=== PATIENT | male | born 1990 | race Hispanic/Latino ===

== ENCOUNTER 2021-04-27 16:10 | Emergency (ER) | payer BC, SELFPAY ==
--- NOTE | 2021-04-27 19:37 | ER ---
Nurse's Notes [facility] Name: Kvng Pressley III Age: 30 yrs Sex: Male : 1990 Arrival Date: 04/27/2021 Time: 16:19 Bed Treatment Private MD: Duong Hoyos R Diagnosis: Presentation: 04/27 16:48 Chief complaint: Patient states: L groin pain and swollen area for 1 day. Tylenol did ll1 help, but his job wants him checked. No dysuria or fever. Coronavirus screen: Vaccine status: Patient reports being unvaccinated. Client denies travel out of the [place] in the last 14 days. At this time, the client does not indicate any symptoms associated with coronavirus-19. Ebola Screen: Patient denies travel to an Ebola-affected area in the 21 days before illness onset. Initial Sepsis Screen: Does the patient meet any 2 criteria? No. Patient's initial sepsis screen is negative. Does the patient have a suspected source of infection? No. Patient's initial sepsis screen is negative. Risk Assessment: Do you want to hurt yourself or someone else? Patient reports no desire to harm self or others. Onset of symptoms was April 27, 2021. 16:48 Method Of Arrival: Ambulatory ll1 16:48 Acuity: MIKE 3 ll1 Triage Assessment: 16:51 General: Appears in no apparent distress. Behavior is calm, cooperative, appropriate ll1 for age. Pain: Complains of pain in groin. : Reports lump L groin. Historical: - Allergies: 16:50 No Known Allergies; ll1 - PMHx: 16:50 Diverticulitis; ll1 - PSHx: 16:50 None; ll1 - Immunization history:: Client reports having NOT received the Covid vaccine. Flu vaccine status is unknown. - Social history:: Smoking status: Reported history of juuling and/or vaping. Patient denies any tobacco usage or history of. Vital Signs: 16:48 BP 135 / 78; Pulse 72; Resp 16; Temp 98.0; Pulse Ox 96% ; Weight 95.25 kg; Height 5 ft. ll1 9 in. (175.26 cm); Pain 8/10; 16:48 Body Mass Index 31.01 (95.25 kg, 175.26 cm) ll1 ED Course: 16:19 Patient arrived in ED. rg4 16:20 Duong Hoyos MD is Private Physician. rg4 16:50 Triage completed. ll1 16:50 Arm band placed on. 1 19:27 Lyle Mohan MD is Attending Physician. 7 Administered Medications: No medications were administered Outcome: 19:36 Patient left the ED. vc1 Signatures: Mena Rogesr rg4 Callie Veliz RN RN 1 Lyle Mohan MD MD [facility] Amanda Zuniga RN RN 1
[2021-04-27 19:57] VITALS: BP 135/78; TEMP 98; O2SAT 96
== END 2021-04-27 19:36 | disposition left against medical advice (07) ==
LOC: ER 16:10
DX: Z53.21 Procedure and treatment not carried out due to patient leaving prior to being seen by health care provider (principal)
CPT/HCPCS: 99281

== ENCOUNTER 2021-10-31 08:37 | Emergency (ER) | payer SELFPAY ==
--- OUTSIDE RECORDS SUMMARY | 2021-10-31 08:39 | XMS REPORT | Continuity of Care Document ---
:1990 Author Organization [facility] t Address [address] [place] [address] Care Team Providers Name Role Phone BRIANNA ROBERTO Primary Care Physician Unavailable Zahida Bull DO Attending Clinician ZAHIDA BULL Attending Clinician Unavailable Only, Ang Db Test Attending Clinician Unavailable Christa Dykes MD Attending Clinician Sree ADAM Attending Clinician Unavailable Yvette Harrison Attending Clinician Sree Duran Attending Clinician Sherry LAU, Milena Owen Attending Clinician Unavailable Only, Gal Adult Uc Test Attending Clinician Unavailable Aneesh Faustin MD Attending Clinician Payers Payer Name Policy Type Policy Number Effective Date Expiration Date S ource CONTINUUM [id number] 2015 Universi ty of GENERIC 00:00:00 [facility] [id number] 016-PresentAge ncy Problems Condition Condition Condition Status Onset Resolution Last Treating Co mments Source Name Details Category Date Date Treatment Clinician Date No known No known Disease Unive rs active active ity of problems problems [facility] Allergies, Adverse Reactions, Alerts Allergy Allergy Status Severity Reaction(s) Onset Inactive Treating Comm ents Source Name Type Date Date Clinician NO KNOWN Drug Active Univers ALLERGIE Class ity of S [place] [facility] [place] Social History Social Habit Start Date Stop Date Quantity Comments Source Exposure to Not sure [facility] SARS-CoV-2 (event) Medica l Branch Sex Assigned At [birth year] [facility] 00:00:00 00:00:00 Medical Branch Smoking Status Start Date Stop Date Source Unknown if ever smoked [facility] Medications Ordered Filled Start Stop Current Ordering Indication Dosage Frequency Signature Comments Components Source Medication Medication Date Date Medication? Clinician (SIG) Name Name naproxen 2020-0 Yes [id number] 550mg Take 1 Univers sodium 8-20 9106 tablet by ity of (ANAPROX 00:00: mouth 2 [place] DS) 550 mg 00 (two) Medical tablet times Branch daily with meals. methylPREDN 2020-0 Yes [id number] Take by Univers ISolone 8-20 9106 mouth ity of (MEDROL, 00:00: SEE-INSTRU Javier as MANSOOR,) 4 mg 00 CTIONS. Medica l tablets follow Branch package directions naproxen 2020-0 Yes [id number] 550mg Take 1 Univers sodium 8-20 9106 tablet by ity of (ANAPROX 00:00: mouth 2 [place] DS) 550 mg 00 (two) Medical tablet times Branch daily with meals. methylPREDN 2020-0 Yes [id number] Take by Univers ISolone 8-20 9106 mouth ity of (MEDROL, 00:00: SEE-INSTRU Javier as MANSOOR,) 4 mg 00 CTIONS. Medica l tablets follow Branch package directions naproxen 2020-0 Yes [id number] 550mg Take 1 Univers sodium 8-20 9106 tablet by ity of (ANAPROX 00:00: mouth 2 [place] DS) 550 mg 00 (two) Medical tablet times Branch daily with meals. methylPREDN 2020-0 Yes [id number] Take by Univers ISolone 8-20 9106 mouth ity of (MEDROL, 00:00: SEE-INSTRU Javier as MANSOOR,) 4 mg 00 CTIONS. Medica l tablets follow Branch package directions naproxen 2020-0 Yes [id number] 550mg Take 1 Univers sodium 8-20 9106 tablet by ity of (ANAPROX 00:00: mouth 2 [place] DS) 550 mg 00 (two) Medical tablet times Branch daily with meals. methylPREDN 0 Yes [id number] Take by Univers ISolone 8 9106 mouth ity of (MEDROL, 00:00: SEE-INSTRU Javier as MANSOOR,) 4 mg 00 CTIONS. Medica l tablets follow Branch package directions naproxen 0 Yes [id number] 550mg Take 1 Univers sodium 8 9106 tablet by ity of (ANAPROX 00:00: mouth 2 [place] DS) 550 mg 00 (two) Medical tablet times Branch daily with meals. methylPREDN 0 Yes [id number] Take by Univers ISolone 8 9106 mouth ity of (MEDROL, 00:00: SEE-INSTRU Javier as MANSOOR,) 4 mg 00 CTIONS. Medica l tablets follow Branch package directions azithromyci Yes [id number] 250mg Take 1 Univers n 5-13 tablet by ity of (ZITHROMAX 00:00: mouth [place] Z-MANSOOR) 250 00 SEE-INSTRU Med ical mg tablet CTIONS. Branch Take 500 mg day 1, then 250 mg days 2 to 5. benzonatate Yes [id number] 100mg Take 1 Univers 100 mg 5-13 capsule by ity of capsule 00:00: mouth 3 [place] 00 (three) Medical times Branch daily as needed for Cough. ibuprofen Yes [id number] 600mg Take 1 U nivers 600 mg 5-13 tablet by ity of tablet 00:00: mouth [place] 00 every 6 Medical (six) Branch hours as needed for Pain (scale 4-6). azithromyci Yes [id number] 250mg Take 1 Univers n 5-13 tablet by ity of (ZITHROMAX 00:00: mouth [place] Z-MANSOOR) 250 00 SEE-INSTRU Med ical mg tablet CTIONS. Branch Take 500 mg day 1, then 250 mg days 2 to 5. benzonatate Yes [id number] 100mg Take 1 Univers 100 mg 5-13 capsule by ity of capsule 00:00: mouth 3 [place] 00 (three) Medical times Branch daily as needed for Cough. ibuprofen Yes [id number] 600mg Take 1 U nivers 600 mg 5-13 tablet by ity of tablet 00:00: mouth [place] 00 every 6 Medical (six) Branch hours as needed for Pain (scale 4-6). azithromyci 2020-0 Yes [id number] 250mg Take 1 Univers n 5-13 tablet by ity of (ZITHROMAX 00:00: mouth [place] Z-MANSOOR) 250 00 SEE-INSTRU Med ical mg tablet CTIONS. Branch Take 500 mg day 1, then 250 mg days 2 to 5. benzonatate 2020-0 Yes [id number] 100mg Take 1 Univers 100 mg 5-13 capsule by ity of capsule 00:00: mouth 3 [place] 00 (three) Medical times Branch daily as needed for Cough. ibuprofen 2020-0 Yes [id number] 600mg Take 1 U nivers 600 mg 5-13 tablet by ity of tablet 00:00: mouth [place] 00 every 6 Medical (six) Branch hours as needed for Pain (scale 4-6). azithromyci 2020-0 Yes [id number] 250mg Take 1 Univers n 5-13 tablet by ity of (ZITHROMAX 00:00: mouth [place] Z-MANSOOR) 250 00 SEE-INSTRU Med ical mg tablet CTIONS. Branch Take 500 mg day 1, then 250 mg days 2 to 5. benzonatate 2020-0 Yes [id number] 100mg Take 1 Univers 100 mg 5-13 capsule by ity of capsule 00:00: mouth 3 (three) Medical times Branch daily as needed for Cough. ibuprofen 2020-0 Yes [id number] 600mg Take 1 U nivers 600 mg 5-13 tablet by ity of tablet 00:00: mouth [place] 00 every 6 Medical (six) Branch hours as needed for Pain (scale 4-6). azithromyci 2020-0 Yes [id number] 250mg Take 1 Univers n 5-13 tablet by ity of (ZITHROMAX 00:00: mouth [place] Z-MANSOOR) 250 00 SEE-INSTRU Med ical mg tablet CTIONS. Branch Take 500 mg day 1, then 250 mg days 2 to 5. benzonatate 2020-0 Yes [id number] 100mg Take 1 Univers 100 mg 5-13 capsule by ity of capsule 00:00: mouth 3 [place] 00 (three) Medical times Branch daily as needed for Cough. ibuprofen 2020-0 Yes [id number] 600mg Take 1 U nivers 600 mg 5-13 tablet by ity of tablet 00:00: mouth [place] 00 every 6 Medical (six) Branch hours as needed for Pain (scale 4-6). Vital Signs Vital Name Observation Time Observation Value Comments Source Systolic blood 2021-04-28 01:11:00 140 mm[Hg] Univer sity of pressure [place] [facility] Diastolic blood 2021-04-28 01:11:00 88 mm[Hg] Unive rsity of pressure [facility] Branch Heart rate 2021-04-28 01:11:00 78 /min Universi ty of [facility] Body temperature 2021-04-28 01:11:00 36.56 [facility] Branch Respiratory rate 2021-04-28 01:11:00 20 /min [facility] Body weight 2021-04-28 01:11:00 98.884 kg Universi ty of [facility] Branch BMI 2021-04-28 01:11:00 32.19 kg/m2 Universi ty [facility] Branch Systolic blood 2021-02-12 22:48:00 141 mm[Hg] Univer sity of [facility] Branch Diastolic blood 2021-02-12 22:48:00 90 mm[Hg] Unive rsity of pressure [place] [facility] Heart rate 2021-02-12 22:48:00 92 /min Universi ty of [facility] Branch Body temperature 2021-02-12 22:48:00 37 [facility] Branch Respiratory rate 2021-02-12 22:48:00 18 /min [facility] Body height 2021-02-12 22:48:00 175.3 cm Universi ty [facility] Branch Body weight 2021-02-12 22:48:00 102.059 kg Universi ty of [place] [facility] BMI 2021-02-12 22:48:00 33.23 kg/m2 Universi [facility] Oxygen saturation in 2021-02-12 22:48:00 100 /min [facility] Arterial blood by [facility] Pulse oximetry Branch Procedures Procedure Date / Time Performed Performing Clinician [facility] e ASSIGNMENT OF BENEFITS 2021-04-28 01:22:52 Doctor Unassigned, No [facility] NOTICE OF PRIVACY 2021-04-28 01:04:24 Doctor Unassigned, No [facility] CONSENT/REFUSAL FOR 2021-04-28 01:04:06 Doctor Unassigned, No [facility] AND Name [facility] Branch TREATMENT Encounters Start End Encounter Admission Attending Care Care Encounter Source Date/Time Date/Time Type Type Clinicians Facility Department ID 2021-04-27 2021-04-27 Emergency Ml [facility] [id number] Univers 19:14:00 20:00:00 Zahida NERI [id number] ity of [place] [id number] [id number] [place] [id number] Branch 2021-04-27 2021-04-27 Emergency X ML [facility] ERT [id number] Univers 19:14:00 20:00:00 ZAHIDA itdillan [facility] 2021-03-19 2021-03-19 Laboratory Only, Ang Db Test [facility] 1.2.8 [id number] [id number] Univers 11:45:00 12:00:00 Only [facility] [id number] ity of [place] [id number] Javier as ESEQUIEL?BLEA [id number] [address] MEDICAL OFFICE BUILDING 2021-02-12 2021-02-12 Emergency X Sree ADAM [facility] ERT [id number] Univers 16:49:00 18:18:00 ity of [facility] 2021-02-12 2021-02-12 Emergency Yvette Sharp [facility] 1.2. [id number] Univers 16:49:00 18:18:00 Sree Adam [id number] ity of [place] [id number] [facility] [id number] [facility] 084 Branch 2020-11-14 2020-11-14 Letter KARYNA Powell [id number] Univers 00:00:00 00:00:00 (Out) Milena WILL [id number] it y of [facility] [id number] Javier as [id number] [facility] 019 Branch 2020-11-13 2020-11-13 Laboratory Only, Gal Adult Uc Test [place] [id number] Univers 17:30:51 17:45:51 Only RaminAneesh [id number] ity of Pediatric [id number] [facility] [id number] [address] 2020-11-03 2020-11-03 Emergency X [facility] ERT [id number] Univers 08:25:00 08:25:00 ity [facility] 2020-07-27 2020-07-27 Emergency X [facility] ERT [id number] Univers 07:26:00 07:26:00 ity [facility] 2019-12-28 2019-12-28 Emergency X ML [facility] ERT [id number] Univers 20:56:00 20:56:00 [facility] 2019-09-27 2019-09-27 Emergency X [facility] ERT [id number] Univers 15:17:00 15:17:[address] [facility] Results This patient has no known results.
--- NOTE | 2021-10-31 09:07 | ER ---
Nurse's Notes [facility] Name: Kvng Pressley III Age: 31 yrs Sex: Male : 1990 Arrival Date: 10/31/2021 Time: 08:40 Bed Waiting Private MD: Diagnosis: Unspecified contact dermatitis, unspecified cause;Allergic urticaria Presentation: 10/31 08:59 Chief complaint: Patient states: itchy and painful rash on inside of left arm, right iw lower abd , left upper thigh since yesterday. Coronavirus screen: At this time, the client does not indicate any symptoms associated with coronavirus-19. Ebola Screen: Patient denies exposure to infectious person. Patient denies travel to an Ebola-affected area in the 21 days before illness onset. No symptoms or risks identified at this time. Initial Sepsis Screen: Does the patient meet any 2 criteria? No. Patient's initial sepsis screen is negative. Does the patient have a suspected source of infection? No. Patient's initial sepsis screen is negative. Risk Assessment: Do you want to hurt yourself or someone else? Patient reports no desire to harm self or others. Onset of symptoms was October 30, 2021. 08:59 Method Of Arrival: Ambulatory iw 08:59 Acuity: MIKE 4 iw Historical: - Allergies: 09:00 blueberries; iw - Home Meds: 09:00 None [Active]; iw - PMHx: 09:00 Diverticulitis; iw - PSHx: 09:00 None; iw Screenin:30 Abuse screen: Denies threats or abuse. Denies injuries from another. Nutritional iw screening: No deficits noted. Tuberculosis screening: No symptoms or risk factors identified. Fall Risk None identified. Assessment: 08:45 General: Appears in no apparent distress. Behavior is calm, cooperative. Pain: Denies iw pain. Neuro: Level of Consciousness is awake, alert, obeys commands, Oriented to person, place, time, situation, Moves all extremities. Derm: Rash noted that is red, urticaria, on right lower quadrant and left lower quadrant. Musculoskeletal: Range of motion: intact in all extremities. Vital Signs: 09:01 BP 126 / 86; Pulse 82; Resp 16; Pulse Ox 100% on R/A; iw ED Course: 08:40 Patient arrived in ED. rg4 08:42 Jaxson Castro is [facility]. jl9 08:42 Navarro Gonzalez DO is Attending Physician. jl9 09:00 Triage completed. iw 09:01 Arm band placed on. iw 09:18 Elissa Loaiza, RN is Primary Nurse. iw Administered Medications: :28 Drug: Benadryl (diphenhydrAMINE) 50 mg Route: IM; Site: right deltoid; iw 09:45 Follow up: Response: No adverse reaction iw 09:28 Drug: Famotidine 40 mg Route: PO; iw 09:45 Follow up: Response: No adverse reaction iw 11:55 Not Given (Physician Discretion): MethylPrednisoLONE 125 mg IVP once iw Outcome: :06 Discharge ordered by . jl9 09:31 Patient left the ED. iw Signatures: Elissa Loaiza RN RN iw Mena Rogers rg4 Jaxson Castro jl9 Corrections: (The following items were deleted from the chart) 09: 09:00 Allergies: No Known Allergies; iw iw
--- NOTE | 2021-10-31 09:07 | EDPHYS ---
Physician Documentation [facility] Name: Kvng Pressley III Age: 31 yrs Sex: Male : 1990 Arrival Date: 10/31/2021 Time: 08:40 Bed Waiting Private MD: ED Physician Navarro Gonzalez HPI: 10/31 08:51 This 31 yrs old Male presents to ER via Ambulatory with complaints of Rash. jl9 08:51 The patient's rash thought to be caused by an unknown cause. The rash is located on the jl9 body diffusely. The rash can be described as erythematous, raised, urticarial. Onset: The symptoms/episode began/occurred yesterday. Associated signs and symptoms: Pertinent positives: itching, Pertinent negatives:. Treatment given at home: Benadryl. Historical: - Allergies: 09:00 blueberries; iw - Home Meds: 09:00 None [Active]; iw - PMHx: 09:00 Diverticulitis; iw - PSHx: 09:00 None; iw ROS: 08:55 Constitutional: Negative for fever, chills, and weight loss, Eyes: Negative for injury, jl9 pain, redness, and discharge, ENT: Negative for injury, pain, and discharge, Neck: Negative for injury, pain, and swelling, Cardiovascular: Negative for chest pain, palpitations, and edema, Respiratory: Negative for shortness of breath, cough, wheezing, and pleuritic chest pain, Abdomen/GI: Negative for abdominal pain, nausea, vomiting, diarrhea, and constipation, Back: Negative for injury and pain, : Negative for injury, bleeding, discharge, and swelling, MS/Extremity: Negative for injury and deformity. 08:55 Neuro: Negative for headache, weakness, numbness, tingling, and seizure, Psych: Negative for depression, anxiety, suicide ideation, homicidal ideation, and hallucinations, Allergy/Immunology: Negative for hives, rash, and allergies, Endocrine: Negative for neck swelling, polydipsia, polyuria, polyphagia, and marked weight changes, Hematologic/Lymphatic: Negative for swollen nodes, abnormal bleeding, and unusual bruising. 08:55 Skin: Positive for rash, diffusely. Exam: 08:56 Constitutional: This is a well developed, well nourished patient who is awake, alert, jl9 and in no acute distress. Head/Face: Normocephalic, atraumatic. Eyes: Pupils equal round and reactive to light, extra-ocular motions intact. Lids and lashes normal. Conjunctiva and sclera are non-icteric and not injected. Cornea within normal limits. Periorbital areas with no swelling, redness, or edema. ENT: Mucous membranes moist. Neck: Trachea midline, no thyromegaly or masses palpated, and no cervical lymphadenopathy. Supple, full range of motion without nuchal rigidity, or vertebral point tenderness. No Meningismus. Chest/axilla: Normal chest wall appearance and motion. Nontender with no deformity. No lesions are appreciated. Cardiovascular: Regular rate and rhythm with a normal S1 and S2. No gallops, murmurs, or rubs. Normal PMI, no JVD. No pulse deficits. Respiratory: Lungs have equal breath sounds bilaterally, clear to auscultation and percussion. No rales, rhonchi or wheezes noted. No increased work of breathing, no retractions or nasal flaring. Abdomen/GI: Soft, non-tender, with normal bowel sounds. No distension or tympany. No guarding or rebound. No evidence of tenderness throughout. Back: No spinal tenderness. No costovertebral tenderness. Full range of motion. 08:56 MS/ Extremity: Pulses equal, no cyanosis. Neurovascular intact. Full, normal range of motion. Neuro: Awake and alert, GCS 15, oriented to person, place, time, and situation. Cranial nerves II-XII grossly intact. Motor strength 5/5 in all extremities. Sensory grossly intact. Cerebellar exam normal. Normal gait. Psych: Awake, alert, with orientation to person, place and time. Behavior, mood, and affect are within normal limits. 08:56 Skin: rash can be described as urticarial. Vital Signs: 09:01 BP 126 / 86; Pulse 82; Resp 16; Pulse Ox 100% on R/A; iw MDM: 08:51 Patient medically screened. jl9 08:57 Data reviewed: vital signs, nurses notes. jl9 09:05 Counseling: I had a detailed discussion with the patient and/or guardian regarding: the jl9 historical points, exam findings, and any diagnostic results supporting the discharge/admit diagnosis, the need for outpatient follow up, to return to the emergency department if symptoms worsen or persist or if there are any questions or concerns that arise at home. Administered Medications: 09:28 Drug: Benadryl (diphenhydrAMINE) 50 mg Route: IM; Site: right deltoid; iw 09:45 Follow up: Response: No adverse reaction iw 09:28 Drug: Famotidine 40 mg Route: PO; iw 09:45 Follow up: Response: No adverse reaction iw 11:55 Not Given (Physician Discretion): MethylPrednisoLONE 125 mg IVP once iw Disposition: 19:27 Co-signature as Attending Physician, Navarro Gonzalez DO I was immediately available on-site ms3 in the Emergency Department for consultation in the care of the patient.. Disposition Summary: 10/31/21 09:06 Discharge Ordered Location: Home jl9 Condition: Stable jl9 Diagnosis - Unspecified contact dermatitis, unspecified cause jl9 - Allergic urticaria jl9 Followup: jl9 - With: Private Physician - When: 1 - 2 days - Reason: Recheck today's complaints, Continuance of care, Re-evaluation by your physician Discharge Instructions: - Discharge Summary Sheet jl9 - Contact Dermatitis jl9 - Rash, Adult, [id number] jl9 Forms: - Work release form iw - Medication Reconciliation Form jl9 - Thank You Letter jl9 - Antibiotic Education jl9 - Prescription Opioid Use jl9 Prescriptions: - Triamcinolone Acetonide 0.5 % Topical Cream - apply 1 application by TOPICAL route 2 times per day As needed; 1 tube; jl9 Refills: 0, Product Selection Permitted - Prednisone 20 mg Oral Tablet - take 2 tablets by ORAL route once daily for 5 days; 10 tablet; Refills: 0, jl9 Product Selection Permitted Signatures: Elissa Loaiza, RN RN iw Navarro Gonzalez DO DO ms3 Jaxson Castro jl9 Corrections: (The following items were deleted from the chart) 09:01 09:00 Allergies: No Known Allergies; iw iw
[2021-10-31] MEDS ORDERED: METHYLPREDNISOLONE 125 MG INJ ONE (09:28)
[2021-10-31] MEDS ORDERED: FAMOTIDINE 20 MG TAB ONE (09:29)
[2021-10-31] MEDS ORDERED: DIPHENHYDRAMINE 50 MG/ML VIAL ONE (09:29)
[2021-10-31 09:40] VITALS: BP 126/86; O2SAT 100
== END 2021-10-31 09:31 | disposition home or self-care (01) ==
LOC: ER 08:37
DX: L25.9 Unspecified contact dermatitis, unspecified cause (principal); L50.0 Allergic urticaria; Z91.018 Allergy to other foods
CPT/HCPCS: J1200; J2930

== ENCOUNTER 2021-11-26 09:07 | Emergency (ER) | payer SELFPAY ==
--- OUTSIDE RECORDS SUMMARY | 2021-11-26 09:10 | XMS REPORT | Continuity of Care Document ---
:1990 Author Organization [facility] t Address [address] [place] [address] Care Team Providers Name Role Phone BRIANNA [...] Effective Date Expiration Date S ource CONTINUUM [id number] 2015 Universi ty of GENERIC 00:00:00 [facility] [id number] 016-PresentAge ncy Problems Condition Condition Condition Status Onset Resolution Last Treating Co mments Source Name Details Category Date Date Treatment Clinician Date No known No known Disease Unive rs active active ity of problems problems [facility] Allergies, Adverse Reactions, Alerts Allergy Allergy Status Severity Reaction(s) Onset Inactive Treating Comm ents Source Name Type Date Date Clinician NO KNOWN Drug Active Univers ALLERGIE Class ity of [facility] Social History Social Habit Start Date Stop Date Quantity Comments Source Exposure to Not sure [facility] SARS-CoV-2 (event) Medica l Branch Sex Ass[birth year] [facility] 00:00:00 00:00:00 Medical Branch Smoking Status Start Date Stop Date Source Unknown if ever smoked [facility] Medications Ordered Filled Start Stop Current Ordering Indication Dosage Frequency Signature Comments Components Source Medication Medication Date Date Medication? Clinician (SIG) Name Name naproxen 2020-0 Yes [id number] 550mg Take 1 Univers sodium 8-20 9106 tablet by ity of (ANAPROX 00:00: mouth 2 [place] DS) 550 mg 00 (two) Medical tablet times Branch daily with meals. methylPREDN 2020-0 Yes [id number] Take by Univers ISolone 8-20 9106 mouth ity of (MEDROL, 00:00: SEE-INSTRU Javier as MANSOOR,) 4 mg 00 CTIONS. Medica l tablets follow Branch package directions naproxen 2020-0 Yes [id number] 550mg Take 1 Univers sodium 8-20 9106 tablet by ity of (ANAPROX 00:00: mouth 2 [place] DS) 550 mg 00 (two) Medical tablet times Branch daily with meals. methylPREDN 2020-0 Yes [id number] Take by Univers ISolone 8-20 9106 mouth ity of (MEDROL, 00:00: SEE-INSTRU Javier as MANSOOR,) 4 mg 00 CTIONS. Medica l tablets follow Branch package directions naproxen 2020-0 Yes [id number] 550mg Take 1 Univers sodium 8-20 9106 tablet by ity of (ANAPROX 00:00: mouth 2 [place] DS) 550 mg 00 (two) Medical tablet times Branch daily with meals. methylPREDN 2020-0 Yes [id number] Take by Univers ISolone 8-20 9106 mouth ity of (MEDROL, 00:00: SEE-INSTRU Javier as MANSOOR,) 4 mg 00 CTIONS. Medica l tablets follow Branch package directions naproxen 2020-0 Yes [id number] 550mg Take 1 Univers sodium 8-20 9106 tablet by ity of (ANAPROX 00:00: mouth 2 [place] DS) 550 mg 00 (two) Medical tablet times Branch daily with meals. methylPREDN 0 Yes [id number] Take by Univers ISolone 8 9106 mouth ity of (MEDROL, 00:00: SEE-INSTRU Javier as MANSOOR,) 4 mg 00 CTIONS. Medica l tablets follow Branch package directions naproxen 0 Yes [id number] 550mg Take 1 Univers sodium 8 9106 tablet by ity of (ANAPROX 00:00: mouth 2 [place] DS) 550 mg 00 (two) Medical tablet times Branch daily with meals. methylPREDN 0 Yes [id number] Take by Univers ISolone 8 9106 mouth ity of (MEDROL, 00:00: SEE-INSTRU Javier as MANSOOR,) 4 mg 00 CTIONS. Medica l tablets follow Branch package directions azithromyci Yes [id number] 250mg Take 1 Univers n 5-13 tablet by ity of (ZITHROMAX 00:00: mouth [place] Z-MANSOOR) 250 00 SEE-INSTRU Med ical mg tablet CTIONS. Branch Take 500 mg day 1, then 250 mg days 2 to 5. benzonatate Yes [id number] 100mg Take 1 Univers 100 mg 5-13 capsule by ity of capsule 00:00: mouth 3 [place] 00 (three) Medical times Branch daily as needed for Cough. ibuprofen Yes [id number] 600mg Take 1 U nivers 600 mg 5-13 tablet by ity of tablet 00:00: mouth [place] 00 every 6 Medical (six) Branch hours as needed for Pain (scale 4-6). azithromyci Yes [id number] 250mg Take 1 Univers n 5-13 tablet by ity of (ZITHROMAX 00:00: mouth [place] Z-MANSOOR) 250 00 SEE-INSTRU Med ical mg tablet CTIONS. Branch Take 500 mg day 1, then 250 mg days 2 to 5. benzonatate Yes [id number] 100mg Take 1 Univers 100 mg 5-13 capsule by ity of capsule 00:00: mouth 3 [place] 00 (three) Medical times Branch daily as needed for Cough. ibuprofen Yes [id number] 600mg Take 1 U nivers 600 mg 5-13 tablet by ity of tablet 00:00: mouth [place] 00 every 6 Medical (six) Branch hours as needed for Pain (scale 4-6). azithromyci 2020-0 Yes [id number] 250mg Take 1 Univers n 5-13 tablet by ity of (ZITHROMAX 00:00: mouth [place] Z-MANSOOR) 250 00 SEE-INSTRU Med ical mg tablet CTIONS. Branch Take 500 mg day 1, then 250 mg days 2 to 5. benzonatate 2020-0 Yes [id number] 100mg Take 1 Univers 100 mg 5-13 capsule by ity of capsule 00:00: mouth 3 [place] 00 (three) Medical times Branch daily as needed for Cough. ibuprofen 2020-0 Yes [id number] 600mg Take 1 U nivers 600 mg 5-13 tablet by ity of tablet 00:00: mouth [place] 00 every 6 Medical (six) Branch hours as needed for Pain (scale 4-6). azithromyci 2020-0 Yes [id number] 250mg Take 1 Univers n 5-13 tablet by ity of (ZITHROMAX 00:00: mouth [place] Z-MANSOOR) 250 00 SEE-INSTRU Med ical mg tablet CTIONS. Branch Take 500 mg day 1, then 250 mg days 2 to 5. benzonatate 2020-0 Yes [id number] 100mg Take 1 Univers 100 mg 5-13 capsule by ity of capsule 00:00: mouth 3 (three) Medical times Branch daily as needed for Cough. ibuprofen 2020-0 Yes [id number] 600mg Take 1 U nivers 600 mg 5-13 tablet by ity of tablet 00:00: mouth [place] 00 every 6 Medical (six) Branch hours as needed for Pain (scale 4-6). azithromyci 2020-0 Yes [id number] 250mg Take 1 Univers n 5-13 tablet by ity of (ZITHROMAX 00:00: mouth [place] Z-MANSOOR) 250 00 SEE-INSTRU Med ical mg tablet CTIONS. Branch Take 500 mg day 1, then 250 mg days 2 to 5. benzonatate 2020-0 Yes [id number] 100mg Take 1 Univers 100 mg 5-13 capsule by ity of capsule 00:00: mouth 3 [place] 00 (three) Medical times Branch daily as needed for Cough. ibuprofen 2020-0 Yes [id number] 600mg Take 1 U nivers 600 mg 5-13 tablet by ity of tablet 00:00: mouth [place] 00 every 6 Medical (six) Branch hours as needed for Pain (scale 4-6). Vital Signs Vital Name Observation Time Observation Value Comments Source Systolic blood 2021-04-28 01:11:00 140 mm[Hg] Univer sity of pressure [facility] Diastolic blood 2021-04-28 01:11:00 88 mm[Hg] Unive rsity of pressure [facility] Branch Heart rate 2021-04-28 01:11:00 78 /min Universi ty of [facility] Body temperature 2021-04-28 01:11:00 36.56 Rosalie [facility] Branch Respiratory rate 2021-04-28 01:11:00 20 /min [facility] Body weight 2021-04-28 01:11:00 98.884 kg Universi ty of [facility] Branch BMI 2021-04-28 01:11:00 32.19 kg/m2 Universi ty [facility] Branch Systolic blood 2021-02-12 22:48:00 141 mm[Hg] Univer sity of [facility] Branch Diastolic blood 2021-02-12 22:48:00 90 mm[Hg] Unive rsity of pressure [facility] Heart rate 2021-02-12 22:48:00 92 /min Universi ty of [facility] Branch Body temperature 2021-02-12 22:48:00 37 Rosalie [facility] of [facility] Branch Respiratory rate 2021-02-12 22:48:00 18 /min [facility] Body height 2021-02-12 22:48:00 175.3 cm Universi ty [facility] Branch Body weight 2021-02-12 22:48:00 102.059 kg Universi ty of [facility] BMI 2021-02-12 22:48:00 33.23 kg/m2 Universi [facility] Oxygen saturation in 2021-02-12 22:48:00 100 /min [facility] Arterial blood by [facility] Pulse oximetry Branch Procedures Procedure Date / Time Performed Performing Clinician [facility] e ASSIGNMENT OF BENEFITS 2021-04-28 01:22:52 Doctor Unassigned, No [facility] NOTICE OF PRIVACY 2021-04-28 01:04:24 Doctor Unassigned, No [facility] CONSENT/REFUSAL FOR 2021-04-28 01:04:06 [facility], [facility] Name [facility] Branch TREATMENT Encounters Start End Encounter Admission Attending Care Care Encounter Source Date/Time Date/Time Type Type Clinicians Facility Department ID 2021-04-27 2021-04-27 Emergency Ml [facility] [id number] Univers 19:14:00 20:00:00 Zahida NERI [id number] ity of [place] [id number] [facility] [id number] [place] [id number] Branch 2021-04-27 2021-04-27 Emergency X ML [facility] ERT [id number] Univers 19:14:00 20:00:00 ZAHIDA itdillan [facility] 2021-03-19 2021-03-19 Laboratory Only, Ang Db Test [facility] 1.2.8 40.114 [id number] Univers 11:45:00 12:00:00 Only [facility] [id number] ity of [place] [id number] Javier as ESEQUIEL?BLEA [id number] [address] MEDICAL OFFICE BUILDING 2021-02-12 2021-02-12 Emergency X Sree ADAM [facility] ERT [id number] Univers 16:49:00 18:18:00 ity of [facility] 2021-02-12 2021-02-12 Emergency Yvette Sharp [facility] 1.2. [id number] [id number] Univers 16:49:00 18:18:00 Sree Adam [id number] ity of [place] [id number] [facility] [id number] [facility] 084 Branch 2020-11-14 2020-11-14 Letter KARYNA Powell [id number] Univers 00:00:00 00:00:00 (Out) Milena WILL [id number] it [facility] [id number] Javier as [id number] [facility] 019 Branch 2020-11-13 2020-11-13 Laboratory Only, Gal Adult Uc Test [place] 1.2.840.114 [id number] Univers 17:30:51 17:45:51 Only RaminAneesh [id number] ity of Pediatric [id number] [facility] [id number] [address] 2020-11-03 2020-11-03 Emergency X [facility] ERT [id number] Univers 08:25:00 08:25:00 ity [facility] 2020-07-27 2020-07-27 Emergency X [facility] ERT [id number] Univers 07:26:00 07:26:00 ity [facility] 2019-12-28 2019-12-28 Emergency X ML [facility] ERT [id number] Univers 20:56:00 20:56:00 [facility] 2019-09-27 2019-09-27 Emergency X [facility] ERT [id number] Univers 15:17:00 15:17:00 [facility] Results This patient has no known results.
[2021-11-26 09:59] LABS: Absolute Lymphocytes (CBC) 1.7 K/uL (0.7-4.9); Hematocrit 41.1 % (39.6-49.0); Lymphocytes % 17.4 % (15.3-44.8); MCV 84.3 fL (80-100); MPV 9.9 fL (7.6-11.3); RBC Red Blood Cell Count 4.87 M/uL (4.33-5.43)
[2021-11-26] MEDS ORDERED: NA CHLORIDE 0.9% 1,000 ML ONE (10:21)
--- NOTE | 2021-11-26 12:20 | ER ---
Nurse's Notes [facility] Name: Kvng Prsesley III Age: 31 yrs Sex: Male : 1990 Arrival Date: 11/26/2021 Time: 09:10 Bed 11 Private MD: Diagnosis: Acute upper respiratory infection, unspecified;Diarrhea, unspecified;Vomiting Presentation: 11/26 09:23 Chief complaint: Patient states: yesterday he had a scratchy throat, felt sick, had iw diarrhea , then today has vomited several times , also has headache and feels hot. Coronavirus screen: Client presents with at least one sign or symptom that may indicate coronavirus-19. Ebola Screen: Patient negative for fever greater than or equal to 101.5 degrees Fahrenheit, and additional compatible Ebola Virus Disease symptoms Patient denies exposure to infectious person. Patient denies travel to an Ebola-affected area in the 21 days before illness onset. No symptoms or risks identified at this time. Initial Sepsis Screen: Does the patient meet any 2 criteria? No. Patient's initial sepsis screen is negative. Does the patient have a suspected source of infection? No. Patient's initial sepsis screen is negative. Risk Assessment: Do you want to hurt yourself or someone else? Patient reports no desire to harm self or others. Onset of symptoms was November 25, 2021. 09:23 Method Of Arrival: Ambulatory iw 09:23 Acuity: MIKE 3 iw Triage Assessment: 10:45 General: Appears in no apparent distress. Behavior is calm, cooperative. iw Historical: - Allergies: 09:27 blueberries; iw - Home Meds: :27 None [Active]; iw - PMHx: 09:27 Diverticulitis; iw Screenin:33 Abuse screen: Denies threats or abuse. Denies injuries from another. Nutritional iw screening: No deficits noted. Tuberculosis screening: No symptoms or risk factors identified. Fall Risk IV access (20 points). Assessment: 10:33 Reassessment: Patient appears in no apparent distress at this time. Patient and/or iw family updated on plan of care and expected duration. Pain level reassessed. Patient is alert, oriented x 3, equal unlabored respirations, skin warm/dry/pink. 11:07 Reassessment: Patient appears in no apparent distress at this time. Patient and/or iw family updated on plan of care and expected duration. Pain level reassessed. Patient is alert, oriented x 3, equal unlabored respirations, skin warm/dry/pink. Vital Signs: 09:23 BP 133 / 84; Pulse 82; Resp 16; Temp 98.6; Pulse Ox 100% on R/A; Weight 95.25 kg; iw Height 5 ft. 9 in. (175.26 cm); 09:23 Body Mass Index 31.01 (95.25 kg, 175.26 cm) iw ED Course: 09:10 Patient arrived in ED. rg4 09:10 [facility]cclelland [facility]-C [facility]. kb 09:10 Devon Stephens MD is Attending Physician. kb 09:27 Triage completed. iw 09:27 Arm band placed on. iw 09:30 Elissa Loaiza, RN is Primary Nurse. iw 09:35 Door closed. Noise minimized. Warm blanket given. Client placed on continuous cardiac mb7 and pulse oximetry monitoring. NIBP monitoring applied. 09:35 SARS-COV-2 RT PCR (Document "Date of Onset" if Symptomatic) Sent. mb7 09:35 Flu Sent. mb7 12:28 No provider procedures requiring assistance completed. IV discontinued, intact, iw bleeding controlled, No redness/swelling at site. Pressure dressing applied. Administered Medications: 10:14 Drug: NS 0.9% 1000 ml Route: IV; Rate: 1000 ml; Site: right antecubital; iw 11:15 Follow up: IV Status: Completed infusion iw 10:44 Not Given (Patient Refused): Zofran (Ondansetron) 4 mg IVP once; over 2 minutes iw Medication: 12:29 VIS not applicable for this client. iw Outcome: 12:20 Discharge ordered by . kb 12:28 Discharged to home ambulatory. iw 12:28 Condition: good 12:28 Discharge instructions given to patient, Instructed on discharge instructions, follow up and referral plans. Demonstrated understanding of instructions, follow-up care, medications, Prescriptions given X 1. 12:29 Patient left the ED. iw Signatures: Stephanie Mcclelland FNP-C FNP-Ckb Williams, Irene RN RN iw Mena Rogers rg4 Karishma Mc mb7 Corrections: (The following items were deleted from the chart) 09:42 09:23 Pulse 82bpm; Resp 16bpm; Pulse Ox 100% RA; Temp 98.6F; 95.25 kg; Height 5 ft. 9 iw in.; BMI: 31.0; iw
--- NOTE | 2021-11-26 12:20 | EDPHYS ---
Physician Documentation [facility] Name: Kvng Pressley III Age: 31 yrs Sex: Male : 1990 Arrival Date: 11/26/2021 Time: 09:10 Bed 11 Private MD: SHAYLEE Physician Devon Stephens HPI: 11/26 15:41 This 31 yrs old Male presents to ER via Ambulatory with complaints of kb Vomiting/Diarrhea. 15:41 The patient presents to the emergency department with nausea, vomiting, diarrhea. kb Onset: The symptoms/episode began/occurred yesterday. Possible causes: unknown. The symptoms are aggravated by nothing. The symptoms are alleviated by nothing. Associated signs and symptoms: Pertinent positives: diarrhea, nausea, vomiting. Severity of symptoms: At their worst the symptoms were mild moderate in the emergency department the symptoms are unchanged. The patient has not experienced similar symptoms in the past. The patient has not recently seen a physician. Pt reports sore throat that started yesterday morning with congestion and diarrhea that developed throughout the day. Today has had cough, hot flashes, nausea, vomiting and malaise. Historical: - Allergies: 09:27 blueberries; iw - Home Meds: 09:27 None [Active]; iw - PMHx: 09:27 Diverticulitis; iw ROS: 15:41 Cardiovascular: Negative for chest pain, palpitations, and edema. kb 15:41 Constitutional: Positive for chills, fatigue, malaise, Negative for body aches, fever. 15:41 ENT: Positive for rhinorrhea, sinus congestion, sore throat. 15:41 Respiratory: Positive for cough. 15:41 Abdomen/GI: Positive for nausea, vomiting, and diarrhea, Negative for abdominal pain. 15:41 All other systems are negative. Exam: 15:41 Constitutional: This is a well developed, well nourished patient who is awake, alert, kb and in no acute distress. Head/Face: Normocephalic, atraumatic. ENT: Moist Mucous membranes Chest/axilla: Normal chest wall appearance and motion. Cardiovascular: Regular rate and rhythm with a normal S1 and S2. No gallops, murmurs, or rubs. No pulse deficits. Respiratory: Respirations even and unlabored. No increased work of breathing. Talking in full sentences Abdomen/GI: Soft, non-tender. No distention Skin: Warm, dry with normal turgor. Normal color. MS/ Extremity: Pulses equal, no cyanosis. Neurovascular intact. Full, normal range of motion. Neuro: Awake and alert, GCS 15, oriented to person, place, time, and situation. Moves all extremities. Normal gait. Psych: Awake, alert, with orientation to person, place and time. Behavior, mood, and affect are within normal limits. Vital Signs: 09:23 BP 133 / 84; Pulse 82; Resp 16; Temp 98.6; Pulse Ox 100% on R/A; Weight 95.25 kg; iw Height 5 ft. 9 in. (175.26 cm); :23 Body Mass Index 31.01 (95.25 kg, 175.26 cm) iw MDM: 09:20 Patient medically screened. kb 15:40 Data reviewed: vital signs, nurses notes. Data interpreted: Pulse oximetry: on room air kb is 100 %. Interpretation: normal. Counseling: I had a detailed discussion with the patient and/or guardian regarding: the historical points, exam findings, and any diagnostic results supporting the discharge/admit diagnosis, lab results, the need for outpatient follow up, a family practitioner, to return to the emergency department if symptoms worsen or persist or if there are any questions or concerns that arise at home. 11/26 09:29 Order name: SARS-COV-2 RT PCR (Document "Date of Onset" if Symptomatic); Complete Time: iw 10:21 11/26 09:29 Order name: Flu; Complete Time: 10:24 iw 11/26 09:30 Order name: CBC with Diff; Complete Time: 10:01 kb 11/26 09:30 Order name: Basic Metabolic Panel; Complete Time: 10:12 kb 11/26 09:30 Order name: [place] Screen Profile; Complete Time: 10:59 kb 11/26 09:30 Order name: IV Start; Complete Time: 10:15 kb Administered Medications: 10:14 Drug: NS 0.9% 1000 ml Route: IV; Rate: 1000 ml; Site: right antecubital; iw 11:15 Follow up: IV Status: Completed infusion iw 10:44 Not Given (Patient Refused): Zofran (Ondansetron) 4 mg IVP once; over 2 minutes iw Disposition Summary: 11/26/21 12:20 Discharge Ordered Location: Home kb Condition: Stable kb Diagnosis - Acute upper respiratory infection, unspecified kb - Diarrhea, unspecified kb - Vomiting kb Followup: kb - With: Emergency Department - When: As needed - Reason: Worsening of condition Followup: kb - With: Private Physician - When: 2 - 3 days - Reason: Recheck today's complaints, Continuance of care, Re-evaluation by your physician Discharge Instructions: - Discharge Summary Sheet kb - Viral Gastroenteritis, Adult, [id number] kb - Upper Respiratory Infection, Adult, [id number] kb Forms: - Medication Reconciliation Form kb - Thank You Letter kb - Antibiotic Education kb - Prescription Opioid Use kb - Work release form iw Prescriptions: - Zofran 4 mg Oral Tablet - take 1 tablet by ORAL route every 8 hours As needed; 20 tablet; Refills: 0, kb Product Selection Permitted Signatures: Dispatcher [employer] Stephanie Olivera, TURRET PRESS OPERATOR-C SADIA-Elissa Nicole, RN RN iw
[2021-11-26 12:55] VITALS: BP 133/84; TEMP 98.6; O2SAT 100
== END 2021-11-26 12:29 | disposition home or self-care (01) ==
LOC: ER 09:07
DX: J06.9 Acute upper respiratory infection, unspecified (principal); R19.7 Diarrhea, unspecified; Z91.018 Allergy to other foods
CPT/HCPCS: 36415; 80048; 85025; 86308; 87804; 96360; 99283; J7030; U0003

== ENCOUNTER 2024-03-29 15:22 | Emergency (ER) | payer SELFPAY ==
--- OUTSIDE RECORDS SUMMARY | 2024-03-29 15:25 | XMS REPORT | Continuity of Care Document ---
Author Name Unknown Address [address] [facility] [place] [address] [facility] Address [address] [facility] [address] [place] [address] Care Team Providers Care Electrifier Operator Name Role Phone BRIANNA ROBERTO Primary Care Physician Unavaila Sree Pop Attending Clinician Unavailable Sree ADAM Attending Clinician Unavailable Zahida Bull DO Attending Clinician [phone] ZAHIDA BULL Attending Clinician Unavailab le Only, Ang Db Test Attending Clinician Unavailoneida Dykes MD, Christa Attending Clinician [phone] Yvette Harrison Attending Clinician [phone] Sherry LAU, Milena Owen Attending Clinician Unavailab le Only, Gal Adult Uc Test Attending Clinician Maddy Faustin MD, Aneesh H Attending Clinician [phone] THOMAS ALBERTS Attending Clinician Unavailable Sree ADAM Admitting Clinician Unavailable THOMAS ALBERTS Admitting Clinician Unavailable Payers Payer Name Policy Type Policy Number Effective Date Expirati on Date Source [facility] [id number] 2023 00:00:00 [employer] [id number] 016-PresentAge [facility] [id number] 2015 00:00:00 [facility] Problems Condition Name Condition Details Condition Category Status Onset Date Resolution Date Last Treatment Date Treating Clinician Comments Source No known active problems No known active problems Disease [facility] Allergies, Adverse Reactions, Alerts Allergy Name Allergy Type Status Severity Reaction(s) Onset Date Inactive Date Treating Clinician Comments Source NO KNOWN ALLERGIE S Drug Class Active [facility] Social History Social Habit Start Date Stop Date Quantity Comments Source [facility]2 (event) Not sure [facility] Sex assigned at 1990 00:00:00 1990 00:00:00 [facility] Smoking Status Start Date Stop Date Source Tobacco smoking consumption unknown [facility] Medications Ordered Medication Name Filled Medication Name Start Date Stop Date Current Medication? Ordering Clinician Indication Dosage Frequency Signature (SIG) Comments Components Source naproxen (NAPROSYN) 500 mg tablet 10-05 00:00: 00 Yes [id number] 500mg Take 1 tablet by mouth in the morning and 1 tablet in the evening. Take with meals. [facility] naproxen sodium (ANAPROX DS) 550 mg tablet 11-03 00:00: 00 Yes [id number] 550mg Take 1 tablet by mouth 2 (two) times daily with meals. [facility] methylPREDN ISolone (MEDROL, MANSOOR,) 4 mg tablets 11-03 00:00: 00 Yes [id number] Take by mouth SEE-INSTRU CTIONS. follow package directions [facility] azithromyci n (ZITHROMAX Z-MANSOOR) 250 mg tablet 07-27 00:00: 00 Yes [id number] 250mg Take 1 tablet by mouth SEE-INSTRU CTIONS. Take 500 mg day 1, then 250 mg days 2 to 5. [facility] benzonatate 100 mg capsule 07-27 00:00: 00 Yes [id number] 100mg Take 1 capsule by mouth 3 (three) times daily as needed for Cough. [facility] ibuprofen 600 mg tablet 07-27 00:00: 00 Yes [id number] 600mg Take 1 tablet by mouth every 6 (six) hours as needed for Pain (scale 4-6). [facility] Vital Signs Vital Name Observation Time Observation Value Comments S ource Systolic blood pressure 2023-10-06 19:00:00 134 mm[Hg] [facility] Diastolic blood pressure 2023-10-06 19:00:00 98 mm[Hg] [facility] Heart rate 2023-10-06 19:00:00 65 /min Unive [facility] Respiratory rate 2023-10-06 19:00:00 18 /min [facility] Oxygen saturation in Arterial blood by Pulse oximetry 2023-10-06 19:00:00 99 /min [facility] Body temperature 2023-10-06 14:47:00 36.56 Rosalie [facility] Systolic blood pressure 2021-04-28 01:11:00 140 mm[Hg] [facility] Diastolic blood pressure 2021-04-28 01:11:00 88 mm[Hg] [facility] Heart rate 2021-04-28 01:11:00 78 /min Unive [facility] Body temperature 2021-04-28 01:11:00 36.56 Rosalie [facility] Respiratory rate 2021-04-28 01:11:00 20 /min [facility] Body weight 2021-04-28 01:11:00 98.884 kg [facility] BMI 2021-04-28 01:11:00 32.19 kg/m2 [facility] Systolic blood pressure 2021-02-12 22:48:00 141 mm[Hg] [facility] Diastolic blood pressure 2021-02-12 22:48:00 90 mm[Hg] [facility] Heart rate 2021-02-12 22:48:00 92 /min Unive [facility] Body temperature 2021-02-12 22:48:00 37 Rosalie [facility] Respiratory rate 2021-02-12 22:48:00 18 /min [facility] Body height 2021-02-12 22:48:00 175.3 cm [facility] Body weight 2021-02-12 22:48:00 102.059 kg [facility] BMI 2021-02-12 22:48:00 33.23 kg/m2 [facility] Oxygen saturation in Arterial blood by Pulse oximetry 2021-02-12 22:48:00 100 /min [place] [facility] Procedures Procedure Date / Time Performed Performing Clinicia n Source XR FOOT 3+ VW RIGHT 2023-10-06 16:52:00 Sree Adam [facility] ASSIGNMENT OF BENEFITS 2021-04-28 01:22:52 Docto r Unassigned, [place] [facility] NOTICE OF PRIVACY PRACTICES 2021-04-28 01:04:24 Doctor Unassigned, [place] [facility] CONSENT/REFUSAL FOR DIAGNOSIS AND TREATMENT 2021-04-28 01:04:06 Doctor Unassigned, [place] [facility] Encounters Start Date/Time End Date/Time Encounter Type Admission Type Attending Clinicians Care Facility Care Department Encounter ID Source 2023-10-06 09:50:00 2023-10-06 14:06:00 Emergency X Sree ADAM K [facility] ERT [id number] [facility] 2023-10-06 09:50:00 2023-10-06 14:06:00 Emergency Sree Adam [facility] [id number] [facility] 2021-04-27 19:14:00 2021-04-27 20:00:00 Emergency Zahida Bull [facility] [id number] [facility] 2021-04-27 19:14:00 2021-04-27 20:00:00 Emergency ZAHIDA COLÓN [facility] ERT [id number] [facility] 2021-03-19 11:45:00 2021-03-19 12:00:00 Laboratory Only Only, Ang Db Test Christa Dykes [facility] [id number] [facility] 2021-02-12 16:49:00 2021-02-12 18:18:00 Emergency X Sree ADAM [facility] ERT [id number] [facility] 2021-02-12 16:49:00 2021-02-12 18:18:00 Emergency Yvette Sharp K Paige [facility] [id number] [facility] 2020-11-14 00:00:00 2020-11-14 00:00:00 Letter (Out) Milena Powell [facility] [id number] [facility] 2020-11-13 17:30:51 2020-11-13 17:45:51 Laboratory Only Only, Gal Adult Uc Test Aneesh Faustin [facility] [id number] [facility] 2020-11-03 08:25:00 2020-11-03 08:25:00 Emergency X [facility] ERT [id number] [facility] 2020-07-27 07:35:00 2020-07-27 08:29:00 Emergency X THOMAS ALBERTS [facility] ERT [id number] [facility] 2019-12-28 20:56:00 2019-12-28 20:56:00 Emergency X ZAHIDA BULL [facility] ERT [id number] [facility] 2019-09-27 15:17:00 2019-09-27 15:17:00 Emergency X [facility] ERT [id number] [facility] Results Test Description Test Time Test Comments Results Resul t Comments Source XR FOOT 3+ VW RIGHT 2023-10-06 17:41:06 ORDERING PHYSICIAN: Sree ADAM THREE VIEWS OF THE RIGHT FOOT. DATE: ?10/06/2023 12:40 PM CLINICAL INDICATIONS: ?Right heel pain COMPARISON: ?None. FINDINGS: ?Three views of the right foot demonstrate no evidence for acutefracture, subluxation or destructive osseous lesion. ?No significant softtissue swelling or radiopaque foreign body is identified. [facility]
[2024-03-29] MEDS ORDERED: HYDROCODONE/APAP 10/325 TAB ONE (16:10)
[2024-03-29] MEDS ORDERED: IBUPROFEN 400 MG TAB ONE (16:10)
--- NOTE | 2024-03-29 16:53 | RAD REPORT ---
EXAMINATION: XR Foot Left 3 View CLINICAL INDICATION: Male, 33 years old. [facility] MAIN crush injury to left great toe;Pain Bed: TECHNIQUE: 3 view radiographs of the left foot were obtained. COMPARISON: No prior exam. FINDINGS: Mildly comminuted fracture at the tuft of the first digit distal phalanx, and mildly displa zuri corner fractures at the base of the distal phalanx laterally as well. Surrounding soft tissue swelling. Otherwise normal joint alignment. No evidence of arthropathy or other focal bone lesion. No arthritic changes or erosions. IMPRESSION: Fractures of the great toe distal phalanx as above.
--- NOTE | 2024-03-29 17:28 | EDPHYS ---
Physician Documentation [facility] Name: Kvng Pressley III Age: 33 yrs Sex: Male : 1990 Arrival Date: 03/29/2024 Time: 15:22 Bed 10 Private MD: ED Physician Noah Duncan HPI: 03/29 15:47 This 33 yrs old Male presents to ER via Unassigned with complaints of Foot rn Injury. 15:54 The patient presents with an injury, pain, that is acute. The complaints affect the rn left foot. 15:54 Onset: The symptoms/episode began/occurred just prior to arrival. Modifying factors: rn The symptoms are alleviated by nothing, the symptoms are aggravated by weight bearing. Severity of symptoms: At their worst the symptoms were moderate, in the emergency department the symptoms are unchanged. The patient has not experienced similar symptoms in the past. Patient reports had 18 inch pipe roll over his left great toe and now his toenail is black and blue with painful range of motion. Reports pain to left great toe but no pain in the foot or ankle.. Historical: - Allergies: 16:34 blueberries; iw - PMHx: 16:34 Diverticulitis; iw - Family history:: not pertinent. - Hospitalizations: : No recent hospitalization is reported. ROS: 15:54 MS/extremity: Positive for decreased range of motion, ecchymosis, pain, rn Exam: 15:54 Constitutional: This is a well developed, well nourished patient who is awake, alert, rn and in no acute distress. MS/ Extremity: Pulses equal, no cyanosis. Neurovascular intact. Left great toe with subungual hematoma and ecchymosis of the tip of the toe. Rest of toe and foot are soft. No open wounds. Vital Signs: 15:38 BP 128 / 100; Pulse 70; Resp 16; Temp 98.1; Pulse Ox 100% on R/A; iw MDM: 15:27 Medical Screening Exam initiated rn 17:25 Differential diagnosis: fracture, sprain. Data reviewed: vital signs, nurses notes, rn radiologic studies, plain films, and as a result, I will discharge patient. Counseling: I had a detailed discussion with the patient and/or guardian regarding the historical points, exam findings, and any diagnostic results supporting the discharge/admit diagnosis, radiology results, the need for outpatient follow up, to return to the emergency department if symptoms worsen or persist or if there are any questions or concerns that arise at home. ED course: Patient with distal tuft fracture of the great toe as well as angular fracture of the base of the toe. Patient declined trephination for subungual hematoma. Fracture Emmanuel taped and put in Ortho shoe, will follow-up with Ortho for further recommendations.. 03/29 15:35 Order name: XRAY Foot LEFT 3 View; Complete Time: 17:05 cm10 03/29 16:42 Order name: Ortho shoe; Complete Time: 17:47 rn 03/29 16:42 Order name: Splint: emmanuel tape toes with cushioning; Complete Time: 17:47 rn Administered Medications: 16:20 Drug: Ibuprofen PO 800 mg PO once Route: PO; iw 17:47 Follow up: Response: No adverse reaction; Marked relief of symptoms; Pain is decreased jb4 16:20 Drug: [place] PO 10 mg-325 mg 1 tabs PO once Route: PO; iw 17:47 Follow up: Response: No adverse reaction; Marked relief of symptoms; Pain is decreased jb4 Disposition Summary: 03/29/24 17:27 Discharge Ordered Notes: Location: Home rn Problem: new rn Symptoms: have improved rn Condition: Stable rn Diagnosis - Displaced fracture of distal phalanx of left great toe rn Followup: rn - With: Ramírez Lombardo MD - When: 1 week - Reason: Recheck today's complaints, Re-evaluation by your physician Discharge Instructions: - Discharge Summary Sheet rn - Toe Fracture rn Forms: - Medication Reconciliation Form rn - Antibiotic learning disabilities teacher - Prescription Opioid Use rn - Patient Portal Instructions rn - Leadership Thank You Letter rn Signatures: Dispatcher [employer] Elissa Shirley RN RN Noah Mckinnon MD MD rn Bryson, James RN jb4 Corrections: (The following items were deleted from the chart) 15:55 15:54 Patient reports had 18 inch pipe roll over his left great toe and now his toenail rn is black and blue with painful range of motion.. rn
--- NOTE | 2024-03-29 17:28 | ER ---
Nurse's Notes [facility] Name: Kvng Pressley III Age: 33 yrs Sex: Male : 1990 Arrival Date: 03/29/2024 Time: 15:22 Bed 10 Private MD: Diagnosis: Displaced fracture of distal phalanx of left great toe Presentation: 03/29 15:38 Acuity: MIKE 4 iw 15:38 Chief complaint: Patient states: a large heavy pipe fell on his left great toe. iw Coronavirus screen: At this time, the client does not indicate any symptoms associated with coronavirus-19. Ebola Screen: No symptoms or risks identified at this time. Initial Sepsis Screen: Does the patient meet any 2 criteria? No. Patient's initial sepsis screen is negative. Does the patient have a suspected source of infection? No. Patient's initial sepsis screen is negative. Risk Assessment: Do you want to hurt yourself or someone else? Patient reports no desire to harm self or others. Onset of symptoms was March 29, 2024. 15:38 Method Of Arrival: Ambulatory Historical: - Allergies: 16:34 blueberries; iw - PMHx: 16:34 Diverticulitis; iw - Family history:: not pertinent. - Hospitalizations: : No recent hospitalization is reported. Screenin:00 [facility] ED Fall Risk Assessment (Adult) History of falling in the last 3 months, jb4 including since admission No falls in past 3 months (0 pts) Confusion or Disorientation No (0 pts) Intoxicated or Sedated No (0 pts) Impaired Gait No (0 pts) Mobility Assist Device Used No (0 pt) Altered Elimination No (0 pt) Score/Fall Risk Level 0 - 2 = Low Risk Oriented to surroundings, Maintained a safe environment. Abuse screen: Denies threats or abuse. Nutritional screening: No deficits noted. Tuberculosis screening: No symptoms or risk factors identified. Assessment: 17:00 General: Appears in no apparent distress. comfortable, Behavior is calm, cooperative, jb4 appropriate for age. Pain: Complains of pain in left first toe Pain does not radiate. Pain currently is 3 out of 10 on a pain scale. Neuro: Level of Consciousness is awake, alert, obeys commands, Oriented to person, place, time, situation. Cardiovascular: Patient's skin is warm and dry. Respiratory: Airway is patent Respiratory effort is even, unlabored, Respiratory pattern is regular, symmetrical. GI: No signs and/or symptoms were reported involving the gastrointestinal system. : No signs and/or symptoms were reported regarding the genitourinary system. EENT: No signs and/or symptoms were reported regarding the EENT system. Derm: Skin is intact, Skin is pink, warm \T\ dry. Musculoskeletal: Circulation, motion, and sensation intact. Range of motion: intact in all extremities, Swelling present in left first toe. Vital Signs: 15:38 BP 128 / 100; Pulse 70; Resp 16; Temp 98.1; Pulse Ox 100% on R/A; iw ED Course: 15:25 Patient arrived in ED. sj2 15:27 Noah Duncan MD is Attending Physician. rn 15:38 Elissa Loaiza RN is Primary Nurse. iw 15:38 Triage completed. iw 16:21 XRAY Foot LEFT 3 View In Process Unspecified. EDMS 17:26 Ramírez Lombardo MD is Referral Physician. rn 17:52 Patient has correct armband on for positive identification. Bed in low position. Call jb4 light in reach. Side rails up X 1. Provided Education on: discharge instructions.. 17:52 No provider procedures requiring assistance completed. Patient did not have IV access jb4 during this emergency room visit. Administered Medications: 16:20 Drug: Ibuprofen PO 800 mg PO once Route: PO; iw 17:47 Follow up: Response: No adverse reaction; Marked relief of symptoms; Pain is decreased jb4 16:20 Drug: [place] PO 10 mg-325 mg 1 tabs PO once Route: PO; iw 17:47 Follow up: Response: No adverse reaction; Marked relief of symptoms; Pain is decreased jb4 Medication: 17:00 VIS not applicable for this client. jb4 Outcome: 17:27 Discharge ordered by . rn 17:52 Discharged to home ambulatory, jb4 17:52 Condition: stable 17:52 Discharge instructions given to patient, Instructed on discharge instructions, follow up and referral plans. Demonstrated understanding of instructions, follow-up care, 17:53 Patient left the ED. jb4 Signatures: Dispatcher [employer] EDMS Elissa Loaiza RN RN Noah Duncan MD MD rn Bryson, James, RN RN jb4 [place], Sonceria sj2
[2024-03-30 17:00] VITALS: BP 128/100; TEMP 98.1; O2SAT 100
== END 2024-03-29 17:53 | disposition home or self-care (01) ==
LOC: ER 15:22
DX: S92.422A Displaced fracture of distal phalanx of left great toe, initial encounter for closed fracture (principal)
CPT/HCPCS: 99283